=== PATIENT | female | born 1995 | race Caucasian/White ===

== ENCOUNTER 2020-11-13 15:15 | Emergency (ER) | payer OTHER ==
[2020-11-13] MEDS ORDERED: CYCLOBENZAPRINE10 MG PO (19:36)
[2020-11-13] MEDS ORDERED: PREDNISONE 20MG20 MG PO (19:36)
== END 2020-11-13 19:58 | disposition home or self-care (01) ==
LOC: FER 15:15
DX: M54.31 Sciatica, right side (principal)
CPT/HCPCS: 93971